=== PATIENT | male | born 1985 | race Caucasian/White ===

== ENCOUNTER 2016-10-08 09:15 | Emergency (ER) | payer MEDICARE ==
[2016-10-08 10:36] LABS: HEMOGLOBIN 16.3 gm/dl (14.0-17.5); RED BLOOD COUNT 4.65 M/UL (4.20-5.50); WHITE BLOOD COUNT 7.1 K/UL (4.5-11.0)
[2016-10-08 11:15] LABS: BUN/CREATININE RATIO 14 (0-10)
== END 2016-10-08 13:00 | disposition home or self-care (01) ==
LOC: ER1 09:15
PROVIDERS: Physician Assistant
DX: J20.9 Acute bronchitis, unspecified (principal); J01.90 Acute sinusitis, unspecified; F17.200 Nicotine dependence, unspecified, uncomplicated
CPT/HCPCS: 36415; 71020; 80053; 82550; 82553; 83874; 84484; 85025; 93005; 94664; 96374; 99284; J2930

== ENCOUNTER 2020-04-30 07:23 | Emergency (ER) | payer OTHER ==
[~2020-04-30 07:23] MED LIST: BENTYL 20MG TAB20 MG PO; CHRONULAC20 GM/30 M PO; FLOMAX 0.4 MG0.4 MG PO; NORCO 7.5-3251 EACH PO; OXYCODONE HCL5 MG PO; ZOFRAN ODT 4 MG4 MG PO
[2020-04-30 08:28] LABS: HEMOGLOBIN 9.3 gm/dl (14.0-17.5); RED BLOOD COUNT 3.81 M/UL (4.20-5.50); WHITE BLOOD COUNT 3.6 K/UL (4.5-11.0)
[2020-04-30 08:47] LABS: BUN/CREATININE RATIO 16 (0-10)
== END 2020-04-30 12:40 | disposition other institution (70) ==
LOC: ER1 07:23
PROVIDERS: Emergency Medicine
DX: I71.4 Abdominal aortic aneurysm, without rupture (principal); D61.818 Other pancytopenia; K70.30 Alcoholic cirrhosis of liver without ascites; F17.200 Nicotine dependence, unspecified, uncomplicated; Z87.19 Personal history of other diseases of the digestive system; Z95.5 Presence of coronary angioplasty implant and graft
CPT/HCPCS: 76705; 80053; 81001; 83605; 83690; 85025; 96374; 96375; 96376; 99285; J2270; J2405; Q9967

== ENCOUNTER 2020-05-05 16:16 | Emergency (ER) | payer OTHER ==
[2020-05-05 17:03] LABS: HEMOGLOBIN 9.7 gm/dl (14.0-17.5); RED BLOOD COUNT 4.06 M/UL (4.20-5.50); WHITE BLOOD COUNT 6.7 K/UL (4.5-11.0)
[2020-05-05 17:23] LABS: BUN/CREATININE RATIO 14 (0-10)
== END 2020-05-05 23:51 | disposition short-term general hospital (02) ==
LOC: ER1 16:16
PROVIDERS: Physician Assistant
DX: D78.89 Other postprocedural complications of the spleen (principal); D73.5 Infarction of spleen; E11.9 Type 2 diabetes mellitus without complications; F17.210 Nicotine dependence, cigarettes, uncomplicated; Z87.19 Personal history of other diseases of the digestive system; Z98.890 Other specified postprocedural states; Y83.9 Surgical procedure, unspecified as the cause of abnormal reaction of the patient, or of later complication, without mention of misadventure at the time of the procedure
CPT/HCPCS: 80053; 82150; 83690; 85025; 93005; 96374; 96375; 96376; 99284; J1170; J2270; J2405; Q9967

== ENCOUNTER 2020-06-22 01:45 | Emergency (ER) | payer OTHER | END 2020-06-22 03:49 | disposition home or self-care (01) | LOC: ER1 01:45 | DX: S61.212A Laceration without foreign body of right middle finger without damage to nail, initial encounter (principal); E11.9 Type 2 diabetes mellitus without complications; W26.8XXA Contact with other sharp object(s), not elsewhere classified, initial encounter | CPT/HCPCS: 12002; 99283 ==

== ENCOUNTER 2020-10-17 00:09 | Emergency (ER) | payer OTHER ==
[2020-10-17 01:39] LABS: HEMOGLOBIN 11.6 gm/dl (14.0-17.5); RED BLOOD COUNT 4.91 M/UL (4.20-5.50); WHITE BLOOD COUNT 6.1 K/UL (4.5-11.0)
[2020-10-17 02:03] LABS: BUN/CREATININE RATIO 21 (0-10)
[2020-10-17] MEDS ORDERED: PERCOCET 5/325 T1 EA PO (03:46)
[2020-10-17] MEDS ORDERED: KEFLEX750 MG PO (03:46)
== END 2020-10-17 04:00 | disposition home or self-care (01) ==
LOC: ER1 00:09
PROVIDERS: Family Medicine
DX: L03.012 Cellulitis of left finger (principal)
CPT/HCPCS: 73130; 80053; 85025; 85652; 86140; 96374; 99283

== ENCOUNTER → 2020-11-06 | Outpatient (CLI) | payer OTHER ==
[~2020-11-06] MED LIST changes: +KEFLEX750 MG PO; +PERCOCET 5/325 T1 EA PO
== END ==
LOC: KOH-I 10:00
DX: M65.9 Synovitis and tenosynovitis, unspecified (principal); M79.89 Other specified soft tissue disorders; R93.6 Abnormal findings on diagnostic imaging of limbs; M25.442 Effusion, left hand
CPT/HCPCS: 73218

== ENCOUNTER 2021-03-21 13:38 | Emergency (ER) | payer OTHER | END 2021-03-21 14:33 | disposition left against medical advice (07) | LOC: ER1 13:38 | DX: Z53.21 Procedure and treatment not carried out due to patient leaving prior to being seen by health care provider (principal) ==

== ENCOUNTER → 2021-04-07 | Outpatient (CLI) | payer OTHER | LOC: KOH-I 14:36 | DX: M54.50 Low back pain, unspecified (principal); M47.816 Spondylosis without myelopathy or radiculopathy, lumbar region | CPT/HCPCS: 72100 ==

== ENCOUNTER 2021-10-14 18:27 | Emergency (ER) | payer OTHER ==
[2021-10-14 19:21] LABS: HEMOGLOBIN 15.6 gm/dl (14.0-17.5); RED BLOOD COUNT 5.05 M/UL (4.20-5.50); WHITE BLOOD COUNT 6.7 K/UL (4.5-11.0)
[2021-10-14 19:50] LABS: BUN/CREATININE RATIO 25 (0-10)
[2021-10-14 22:25] LABS: BUN/CREATININE RATIO 27 (0-10)
[2021-10-15 01:21] LABS: BUN/CREATININE RATIO 31 (0-10)
== END 2021-10-15 18:33 | disposition short-term general hospital (02) ==
LOC: ER1 18:27
PROVIDERS: Family Medicine
DX: E11.65 Type 2 diabetes mellitus with hyperglycemia (principal); T82.898A Other specified complication of vascular prosthetic devices, implants and grafts, initial encounter; K74.60 Unspecified cirrhosis of liver; Z79.4 Long term (current) use of insulin; Z79.899 Other long term (current) drug therapy
CPT/HCPCS: 71045; 80048; 80053; 81001; 82009; 82150; 82550; 82553; 82803; 82962; 83605; 83690; 84484; 85025; 93005; 96361; 96374; 96375; 96376; 99285; J1200; J2270; J2405; Q9967

== ENCOUNTER 2021-12-14 02:03 | Emergency (ER) | payer OTHER ==
[2021-12-14] MEDS ORDERED: DOXYCYCLINE HY100 MG PO (03:12)
== END 2021-12-14 03:28 | disposition home or self-care (01) ==
LOC: ER1 02:03
DX: L03.317 Cellulitis of buttock (principal); E11.9 Type 2 diabetes mellitus without complications
CPT/HCPCS: 99283

== ENCOUNTER 2022-01-16 01:35 | Emergency (ER) | payer OTHER ==
[~2022-01-16 01:35] MED LIST changes: +DOXYCYCLINE HY100 MG PO
[2022-01-16] MEDS ORDERED: NAPROSYN500 MG PO (02:53)
[2022-01-16] MEDS ORDERED: BENZONATATE200 MG PO (02:53)
== END 2022-01-16 03:03 | disposition home or self-care (01) ==
LOC: ER1 01:35
DX: R09.1 Pleurisy (principal); E11.9 Type 2 diabetes mellitus without complications
CPT/HCPCS: 71046; 96372; 99283; J1885